=== PATIENT | male | born 1950 | race Caucasian/White ===

== ENCOUNTER → 2019-08-17 06:00 | Outpatient (CLI) | payer OTHER ==
[~2019-08-17 06:00] MED LIST: ASA81 MG PO; ATORVASTATIN CA10 MG PO; ECOTRIN81 MG PO; ENALAPRIL MALEA10 MG NGT; FAMCICLOVIR500 MG PO; FOLIC PO; GABAPENT; GLYPIZIDE PO; HUM PO; HUM SUBCUTANEO; JANUVIA100 MG PO; LANTUS; LOVASTATIN10 MG PO; MAXIMUM DAILY1 EACH; METFORMIN HCL500 MG PO; PEPCID AC20 MG PO; VITAMIN B PO; XGEVA120 MG/1.7; ZESTRIL2.5 MG PO; [UNRECOGNIZED DRUG - OTHER] PO; vitamin c PO
== END | disposition home or self-care (01) ==
LOC: EKG 06:00 → ADM 11:00 → CIR.AMB 08-24 11:00 → EDSTATUS 08-24 11:00 → ADM 08-24 11:00
DX: M19.031 Primary osteoarthritis, right wrist (principal); I10 Essential (primary) hypertension